=== PATIENT | female | born 1945 | race Asian ===

== ENCOUNTER 2016-03-07 18:26 | Emergency (ER) | payer MEDICARE, MEDICAID ==
[2016-03-07] MEDS ORDERED: DEXAMETHASONE 10 MG/ML VIAL PO STA (20:21)
[2016-03-07] MEDS ORDERED: KETOROLAC 30 MG/ML VIAL IM STA (20:21)
[2016-03-07] MEDS ORDERED: DEXAMETHASONE 10 MG/ML VIAL ONE (20:31)
[2016-03-07] MEDS ORDERED: KETOROLAC 30 MG/ML VIAL ONE (20:31)
== END 2016-03-07 21:07 | disposition home or self-care (01) ==
DX: J02.9 Acute pharyngitis, unspecified (principal); I10 Essential (primary) hypertension

== ENCOUNTER 2016-12-07 07:17 | Outpatient (CLI) | payer MEDICARE, MEDICAID ==
--- NOTE | 2016-12-07 12:13 | MRI Report ---
EXAM: MRI LUMBAR SPINE WITHOUT CONTRAST EXAM DATE: 12/07/2016 08:12 AM. CLINICAL HISTORY: Low back pain, radiating to the legs. COMPARISON: None. TECHNIQUE: Multiplanar, multisequence T1-weighted and fluid-sensitive sequences of the lumbar spine f rom T12 to S1 without contrast. Other: None. FINDINGS: Spinal Cord: The conus terminates at L1-L2. No signal abnormality in the visualized spinal cord. Alignment: Mild degenerative anterolisthesis of L3 on L4 and L4 on L5. Bone Marrow: Five pvs-glv-sldxmma lumbar vertebral bodies are assumed. Vertebral body heights are ludy ntained. No acute marrow edema. Disk Levels/Facets: T12-L1: Unremarkable. L1-L2: Unremarkable. L2-L3: Minimal diffuse annular disk bulge, no focal disk extrusion or significant stenosis. Minimal d egenerative facet hypertrophy. L3-L4: Mild degenerative disk disease. Moderate facet arthropathy with ligamentum flavum thickening a nd small facet joint effusions. Diffuse annular disk bulge. Minimal foraminal stenosis, no intraforam inal nerve root compression. Moderate stenosis of the central canal and left lateral recess. L4-L5: Moderate degenerative disk disease. Moderate to severe facet arthropathy with ligamentum flavu m thickening. Prominent diffuse annular disk bulge. No focal extrusion or significant central stenosi s but moderate to severe stenosis of the central canal and both lateral recesses. L5-S1: Patent central canal, but no thecal sac impingement. Minimal foraminal stenosis. Disk protrusi on to the left of midline is small. The epidural fat ventral to the left S1 nerve root sleeve; howeve r, is effaced. Findings are equivocal for left S1 nerve root displacement or compression. Musculature: No acute edema. Other: None. IMPRESSION: 1. Prominent multilevel lumbar degenerative changes, most prominent at L3-L4 and L4-L5. Moderate to s evere stenosis of the central canal and lateral recesses at L4-L5. Moderate central canal and left la teral recess stenosis at L3-L4. 2. No significant foraminal stenosis. 3. Mild subarticular zone stenosis on the left at L5-S1 from asymmetric disk protrusion to the left o f midline at this level. 4. Degenerative anterolisthesis of L3 on L4 and L4 on L5. Comment: The following findings are so common in adults without low back pain that while we report th eir presence, they must be interpreted with caution and in the context of the clinical situation. (Re amanda Camarillo et al, Spine 2001) Prevalence of findings in patients without low back pain: Disk degeneration (any evidence): 92% Disk desiccation/T2 signal loss: 83% Disk height loss: 56% Disk bulge: 64% Disk protrusion: 32% Annular tear/high intensity zone: 38% [facility] Referring Provider Line: [phone] SITE ID: [id number]
== END 2016-12-07 07:18 | disposition home or self-care (01) ==
LOC: DI 07:17
PROVIDERS: ATTEND Acupuncturist
DX: M51.36 Other intervertebral disc degeneration, lumbar region (principal); M51.26 Other intervertebral disc displacement, lumbar region; M43.16 Spondylolisthesis, lumbar region
CPT/HCPCS: 72148

== ENCOUNTER 2017-06-20 09:16 | Outpatient (CLI) | payer MEDICARE, MEDICAID ==
[2017-06-20 12:39] LABS: BASOPHILS # (AUTO) 0.1 10^3/uL (0.0-0.1); EOSINOPHILS # (AUTO) 0.2 10^3/uL (0.0-0.7); EOSINOPHILS % (AUTO) 2.7 %; HGB - HEMOGLOBIN 13.6 g/dL (12.0-16.0); LYMPHOCYTES # (AUTO) 1.4 10^3/uL (1.5-3.5); MEAN CORPUSCULAR HEMOGLOBIN 29.3 pg (27.0-31.0); MEAN CORPUSCULAR HGB CONC 33.5 g/dL (32.0-36.0); MEAN CORPUSCULAR VOLUME 87.5 fL (81.0-99.0); MEAN PLATELET VOLUME 9.4 fL (7.9-10.8); MONOCYTES # (AUTO) 0.5 10^3/uL (0.0-1.0); MONOCYTES % (AUTO) 8.6 %; NEUTROPHILS # (AUTO) 3.8 10^3/uL (1.5-6.6); NEUTROPHILS % (AUTO) 63.7 %; PLT - PLATELET COUNT 234 10^3/uL (130-450); RED BLOOD COUNT 4.65 10^6/uL (4.20-5.40); RED CELL DISTRIBUTION WIDTH 13.7 % (12.0-15.0)
[2017-06-20 12:49] LABS: HB2 TOTAL 14.5 g/dL; HEMOGLOBIN A1C 0.56 g/dL; HEMOGLOBIN A1C % 5.7 % (4.6-6.2)
[2017-06-20 12:57] LABS: ALBUMIN 4.4 g/dL (3.2-5.5); ALBUMIN/GLOBULIN RATIO 1.5 (1.0-2.2); ALKALINE PHOSPHATASE 65 IU/L (42-121); ALT ALANINE AMINOTRANSFERASE 15 IU/L (10-60); AST ASPARTATE AMINOTRANSFERASE 19 IU/L (10-42); BILIRUBIN,TOTAL 0.5 mg/dL (0.2-1.0); BUN - BLOOD UREA NITROGEN 10 mg/dL (6-20); CALCIUM 9.4 mg/dL (8.5-10.3); CARBON DIOXIDE - CO2 26 mmol/L (21-32); CHLORIDE 107 mmol/L (101-111); CHOL/HDL RATIO 5.5 (<4.4); CHOLESTEROL 252 mg/dL; CREATININE 0.8 mg/dL (0.4-1.0); GFR - MDRD 71 (>89); GLUCOSE 104 mg/dL (70-100); HDL CHOLESTEROL 46 mg/dL; LDL CHOLESTEROL,CALCULATED 170 mg/dL; LDL/HDL RATIO 3.7 (<4.4); SODIUM 139 mmol/L (135-145); TOTAL PROTEIN 7.4 g/dL (6.7-8.2); VLDL CHOLESTEROL 36 mg/dL
== END 2017-06-20 09:17 ==
LOC: LAB.N 09:16
PROVIDERS: ATTEND Nurse Practitioner Gerontology
DX: I10 Essential (primary) hypertension (principal); E78.5 Hyperlipidemia, unspecified; R73.9 Hyperglycemia, unspecified
CPT/HCPCS: 36415; 80053; 80061; 83036; 83721; 85025

== ENCOUNTER 2018-03-17 11:06 | Emergency (ER) | payer MEDICARE, MEDICAID ==
[2018-03-17 11:17] VITALS: BP 170/87
[2018-03-17] MEDS ORDERED: ACETAMINOPHEN 500 MG TABLET PO STA (12:28)
[2018-03-17] MEDS ORDERED: diazePAM 5 MG TABLET PO STA (12:28)
--- NOTE | 2018-03-17 13:17 | CT Report ---
Reason: back pain, with radicular symptoms Procedure Date: 03/17/2018 Accession Number: [id number] / [id number] Procedure: CT - Lumbar Spine W/O CPT Code: FULL RESULT: EXAM: CT LUMBAR SPINE WITHOUT CONTRAST EXAM DATE: 03/17/2018 12:48 PM. CLINICAL HISTORY: Back pain, with radicular symptoms. COMPARISONS: LUMBAR SPINE W/O 12/07/2016 8:00 AM. TECHNIQUE: Thin-section axial images were acquired of the lumbar spine from T12 to S1 without contrast. Post-processing: Coronal and sagittal reformats. Other: None. In accordance with CT protocol optimization, one or more of the following dose reduction techniques were utilized for this exam: automated exposure control, adjustment of mA and/or KV based on patient size, or use of iterative reconstructive technique. FINDINGS: Alignment: 0.3 cm L3 anterolisthesis, stable. 0.6 cm L4 anterolisthesis, stable. Minimal less than 10 degrees mid lumbar dextrocurvature, stable. Bones: Five mib-bdo-hhrtcuf lumbar vertebral bodies are present. No fractures or bone lesions. Disk Levels/Facets: T12-L1: Unremarkable. L1-L2: Unremarkable. L2-L3: Mild disk narrowing and bulge, stable. Facets unremarkable. Probable foraminal stenoses, stable. L3-L4: Disk narrowing with posterior uncovering of the disk from listhesis and moderate bilateral facet arthropathy, stable. Central canal and foraminal stenoses are stable from prior MR. L4-L5: Anterolisthesis and disk narrowing with posterior uncovering the disk, stable. Moderate to severe bilateral facet arthropathy is stable. Stable central canal and foraminal stenoses since prior MRI. L5-S1: Mild disk narrowing with bulge, stable. Mild bilateral facet arthropathy is unchanged. Musculature: Normal. No fatty atrophy. Other: The visualized retroperitoneum is unremarkable. IMPRESSION: 1. No change since prior MR. 2. Stable L3 and L4 anterolisthesis with disk narrowing and facet arthropathy. 3. Stable central canal stenosis L3-L4 and L4-L5. 4. No evidence of fracture. [facility]
[2018-03-17] MEDS ORDERED: predniSONE 20 MG TABLET PO STA (13:27)
--- NOTE | 2018-03-17 13:32 | ED Physician Documentation ---
PD HPI BACK PAIN - Stated complaint Stated Complaint: LEFT IS NUMB AND SWELLING - Chief complaint Chief Complaint: Back Pain - Additional information Additional information: 72-year-old female with a history of chronic back pain presents with increasing back pain over the past several weeks which now radiates into her buttocks. This is the same pain she is experienced in the past just has had a flareup over the past couple weeks. The patient denies any recent trauma, fever, saddle anesthesia, urinary retention, motor weakness, IV drug use and the patient is not on dialysis. The patient has had injections in the past with no significant improvement. The patient had an MRI in 2017. The patient has not talked with her primary about this current episode. Symptoms are described as moderate. No other associated symptoms Review of Systems Constitutional: denies: Fever Eyes: denies: Discharge Ears: denies: Ear pain Nose: denies: Congestion Throat: denies: Oral lesions / sores Cardiac: denies: Chest pain / pressure Respiratory: denies: Cough GI: denies: Abdominal Pain : denies: Dysuria, Incontinent, Hematuria Skin: denies: Rash Musculoskeletal: reports: Back pain. denies: Neck pain, Joint pain, Extremity swelling Neurologic: denies: Generalized weakness, Focal weakness, Numbness, Difficulty speaking, Syncope PD PAST MEDICAL HISTORY - Past Medical History Past Medical History: Yes Cardiovascular: Hypertension Respiratory: None Neuro: None Endocrine/Autoimmune: None GI: None CDL INSTRUCTOR: None : None HEENT: None Psych: None Musculoskeletal: Chronic back pain Derm: None - Past Surgical History Past Surgical History: Yes - Present Medications Home Medications: Ambulatory Orders Medication Instructions Recorded Confirmed Atenolol 25 mg PO 03/07/16 Benzonatate [Tessalon Perle] 100 mg PO TID #15 capsule 03/07/16 Simvastatin [Zocor] 5 mg PO 03/07/16 03/07/16 guaiFENesin/CODEINE [Robitussin AC] 5 ml PO Q6H PRN #120 ml 03/07/16 metFORMIN [Glucophage] 500 mg PO ONCE 03/07/16 03/07/16 predniSONE [Prednisone] 40 mg PO DAILY #10 tablet 03/17/18 - Allergies Allergies/Adverse Reactions: Allergies Allergy/AdvReac Type Severity Reaction Status Date / Time No Known Drug Allergies Allergy Verified 03/17/18 11:15 - Social History Does the pt smoke?: No Smoking Status: Never smoker Does the pt drink ETOH?: No Does the pt have substance abuse?: No - Immunizations Immunizations are current?: Yes - POLST Patient has POLST: No PD ED PE NORMAL - General General: Alert and oriented X 3, No acute distress - HEENT HEENT: Atraumatic, PERRL, EOMI, Ears normal - Back Back: No: No spinal TTP (lumbar paraspinal tenderness, no crepitus, no deformity ) - Derm Derm: Normal color - Extremities Extremities: No deformity, Normal ROM s pain - Neuro Neuro: Alert and oriented X 3, 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 No change since prior MR. 2. Stable L3 and L4 anterolisthesis with disk narrowing and facet arthropathy. 3. Stable central canal stenosis L3-L4 and L4-L5. 4. No evidence of fracture. ) PD MEDICAL DECISION MAKING - ED course ED course: The patient's evaluation shows no evidence of acute cauda equina or epidural abscess and currently there is no emergent indication for MRI. The patient appears appropriate for discharge and ongoing outpatient management. The patient is a diabetic but is having symptoms of sciatica. I offered her a course of a steroid to see if this would help with the inflammation but I did inform her that the steroid would most likely elevated blood sugar. The patient wanted to try the steroid and will closely monitor her blood sugar. The patient will follow up with primary care for referral to physical therapy. The patient will return for any worsening or any concerns Departure - Departure Disposition: 01 Home, Self Care Clinical Impression: Back pain of lumbosacral region with sciatica Condition: Good Instructions: ED Sciatica Follow-Up: Sheridan Rayo ARNP [Primary Care Provider] - Within 1 week (Please follow-up with your primary care this week. Please have them arrange for outpatient physical therapy to help with your acute back pain. Please ask about a referral back to the pain specialist.) Prescriptions: predniSONE [Prednisone] 40 mg PO DAILY #10 tablet Comments: Please return to the emergency department or any concerns
== END 2018-03-17 13:46 | disposition home or self-care (01) ==
LOC: ED 11:06
DX: M54.40 Lumbago with sciatica, unspecified side (principal); I10 Essential (primary) hypertension; E11.9 Type 2 diabetes mellitus without complications
CPT/HCPCS: 72131; 99282; 99283; A9270; J7512

== ENCOUNTER 2018-06-20 08:00 | Outpatient (CLI) | payer MEDICARE, MEDICAID ==
[2018-06-20 19:45] LABS: BASOPHILS # (AUTO) 0.1 10^3/uL (0.0-0.1); EOSINOPHILS # (AUTO) 0.2 10^3/uL (0.0-0.7); EOSINOPHILS % (AUTO) 4.1 %; HGB - HEMOGLOBIN 12.9 g/dL (12.0-16.0); LYMPHOCYTES # (AUTO) 1.4 10^3/uL (1.5-3.5); LYMPHOCYTES % (AUTO) 26.2 %; MEAN CORPUSCULAR HEMOGLOBIN 28.6 pg (27.0-31.0); MEAN CORPUSCULAR HGB CONC 32.1 g/dL (32.0-36.0); MEAN CORPUSCULAR VOLUME 89.1 fL (81.0-99.0); MEAN PLATELET VOLUME 9.3 fL (7.9-10.8); MONOCYTES # (AUTO) 0.4 10^3/uL (0.0-1.0); MONOCYTES % (AUTO) 7.1 %; NEUTROPHILS # (AUTO) 3.2 10^3/uL (1.5-6.6); NEUTROPHILS % (AUTO) 61.6 %; PLT - PLATELET COUNT 220 10^3/uL (130-450); RED BLOOD COUNT 4.52 10^6/uL (4.20-5.40); RED CELL DISTRIBUTION WIDTH 14.4 % (12.0-15.0); WHITE BLOOD COUNT 5.2 x10^3/uL (4.8-10.8)
[2018-06-20 20:26] LABS: ALBUMIN 4.2 g/dL (3.2-5.5); ALBUMIN/GLOBULIN RATIO 1.5 (1.0-2.2); ALKALINE PHOSPHATASE 70 IU/L (42-121); ALT ALANINE AMINOTRANSFERASE 15 IU/L (10-60); AST ASPARTATE AMINOTRANSFERASE 16 IU/L (10-42); BILIRUBIN,TOTAL 0.6 mg/dL (0.2-1.0); BUN - BLOOD UREA NITROGEN 19 mg/dL (6-20); CALCIUM 8.9 mg/dL (8.5-10.3); CARBON DIOXIDE - CO2 25 mmol/L (21-32); CHLORIDE 108 mmol/L (101-111); CHOL/HDL RATIO 3.1 (<4.4); CHOLESTEROL 142 mg/dL; CREATININE 0.7 mg/dL (0.4-1.0); GFR - MDRD 82 (>89); GLUCOSE 114 mg/dL (70-100); HDL CHOLESTEROL 46 mg/dL; LDL CHOLESTEROL,CALCULATED 84 mg/dL; LDL/HDL RATIO 1.8 (<4.4); SODIUM 140 mmol/L (135-145); VLDL CHOLESTEROL 12 mg/dL
== END 2018-06-20 23:59 | disposition home or self-care (01) ==
LOC: LAB.N 08:00
PROVIDERS: ATTEND Nurse Practitioner Gerontology
DX: E78.5 Hyperlipidemia, unspecified (principal); I10 Essential (primary) hypertension
CPT/HCPCS: 36415; 80053; 80061; 83721; 85025

== ENCOUNTER 2019-07-04 13:50 | Outpatient (CLI) | payer MEDICARE, MEDICAID ==
[2019-07-04 17:56] LABS: BASOPHILS # (AUTO) 0.1 10^3/uL (0.0-0.1); BASOPHILS % (AUTO) 1.3 %; EOSINOPHILS # (AUTO) 0.2 10^3/uL (0.0-0.7); HGB - HEMOGLOBIN 13.3 g/dL (12.0-16.0); LYMPHOCYTES # (AUTO) 1.8 10^3/uL (1.5-3.5); LYMPHOCYTES % (AUTO) 34.6 %; MEAN CORPUSCULAR HEMOGLOBIN 29.6 pg (27.0-31.0); MEAN CORPUSCULAR HGB CONC 33.2 g/dL (32.0-36.0); MEAN CORPUSCULAR VOLUME 89.3 fL (81.0-99.0); MEAN PLATELET VOLUME 11.6 fL (7.9-10.8); MONOCYTES # (AUTO) 0.5 10^3/uL (0.0-1.0); MONOCYTES % (AUTO) 9.8 %; NEUTROPHILS # (AUTO) 2.7 10^3/uL (1.5-6.6); NEUTROPHILS % (AUTO) 50.1 %; PLT - PLATELET COUNT 222 10^3/uL (130-450); RED BLOOD COUNT 4.49 10^6/uL (4.20-5.40); RED CELL DISTRIBUTION WIDTH 14.3 % (12.0-15.0); WHITE BLOOD COUNT 5.3 x10^3/uL (4.8-10.8)
[2019-07-04 18:14] LABS: HB2 TOTAL 13.6 g/dL; HEMOGLOBIN A1C 0.57 g/dL
[2019-07-04 18:26] LABS: ALBUMIN 4.3 g/dL (3.2-5.5); ALBUMIN/GLOBULIN RATIO 1.4 (1.0-2.2); ALKALINE PHOSPHATASE 64 IU/L (42-121); ALT ALANINE AMINOTRANSFERASE 12 IU/L (10-60); AST ASPARTATE AMINOTRANSFERASE 16 IU/L (10-42); BILIRUBIN,TOTAL 0.7 mg/dL (0.2-1.0); BUN - BLOOD UREA NITROGEN 13 mg/dL (6-20); CALCIUM 9.1 mg/dL (8.5-10.3); CARBON DIOXIDE - CO2 25 mmol/L (21-32); CHLORIDE 107 mmol/L (101-111); CHOL/HDL RATIO 3.3 (<4.4); CHOLESTEROL 174 mg/dL; CREATININE 0.7 mg/dL (0.4-1.0); GLUCOSE 100 mg/dL (70-100); HDL CHOLESTEROL 52 mg/dL; LDL CHOLESTEROL,CALCULATED 86 mg/dL; LDL/HDL RATIO 1.7 (<4.4); SODIUM 140 mmol/L (135-145); TOTAL PROTEIN 7.3 g/dL (6.7-8.2); VLDL CHOLESTEROL 36 mg/dL
== END 2019-07-04 23:59 | disposition home or self-care (01) ==
LOC: LAB.WCP 13:50
PROVIDERS: ATTEND Family Medicine
DX: E11.9 Type 2 diabetes mellitus without complications (principal); E78.5 Hyperlipidemia, unspecified; I10 Essential (primary) hypertension
CPT/HCPCS: 36415; 80053; 80061; 83036; 83721; 84443; 85025

== ENCOUNTER 2019-10-17 13:10 | Outpatient (CLI) | payer MEDICARE, MEDICAID | END 2019-10-17 13:11 | disposition home or self-care (01) | LOC: COV 13:10 | PROVIDERS: ATTEND Family Medicine | DX: R05 Cough (principal); J02.9 Acute pharyngitis, unspecified; R09.81 Nasal congestion; Z20.828 Contact with and (suspected) exposure to other viral communicable diseases ==

== ENCOUNTER 2020-02-19 14:25 | Outpatient (CLI) | payer MEDICARE, MEDICAID ==
--- NOTE | 2020-02-20 11:46 | Mammography Report ---
BILATERAL DIGITAL SCREENING MAMMOGRAM 3D/2D: 02/19/2020 CLINICAL: Routine screening. Comparison is made to exam dated: 10/25/2013 mammogram - [facility]. There are sca ttered fibroglandular elements in both breasts. There are benign vascular calcifications in both breasts. No significant masses, calcifications, or other findings are seen in either breast. There has been no significant interval change. IMPRESSION: BENIGN There is no mammographic evidence of malignancy. A 1 year screening mammogram is recommended. This exam was interpreted at Station ID: [id number]. NOTE: For mammograms, a report in lay terms will be sent to the patient. Approximately 15% of breast malignancies will not be visualized mammographically. In the management of a palpable breast mass, a negative mammogram must not discourage biopsy of a clinically suspicious lesion. Electronically Signed By: Ana donohue/kristalrad:02/19/2020 17:57:41 ACR BI-RADS Category 2: Benign Finding(s) 3342F PARENCHYMAL PATTERN: (A) - The breast(s) demonstrate(s) scattered fibroglandular densities. BI-RADS CATEGORY: (2) - 2 RECOMMENDATION: (ANNUAL) - Recommend routine annual screening mammography. [id number] 1 year screening LATERALITY: (B)
== END 2020-02-19 14:26 | disposition home or self-care (01) ==
LOC: DI.N 14:25
PROVIDERS: ATTEND Internal Medicine
DX: Z12.31 Encounter for screening mammogram for malignant neoplasm of breast (principal)
CPT/HCPCS: 77067

== ENCOUNTER 2020-05-15 08:00 | Outpatient (CLI) | payer MEDICARE, MEDICAID ==
[2020-05-15 12:24] LABS: ESTIMATED AVERAGE GLUCOSE 111 mg/dL (70-100); HEMOGLOBIN A1c% 5.5 % (4.27-6.07)
[2020-05-15 12:35] LABS: ALBUMIN 4.3 g/dL (3.2-5.5); ALBUMIN/GLOBULIN RATIO 1.5 (1.0-2.2); ALKALINE PHOSPHATASE 52 IU/L (42-121); ALT ALANINE AMINOTRANSFERASE 15 IU/L (10-60); AST ASPARTATE AMINOTRANSFERASE 19 IU/L (10-42); BILIRUBIN,TOTAL 0.8 mg/dL (0.2-1.0); BUN - BLOOD UREA NITROGEN 19 mg/dL (6-20); CALCIUM 9.3 mg/dL (8.5-10.3); CARBON DIOXIDE - CO2 26 mmol/L (21-32); CHLORIDE 106 mmol/L (101-111); CHOL/HDL RATIO 3.7 (<4.4); CHOLESTEROL 178 mg/dL; CREATININE 0.7 mg/dL (0.4-1.0); GFR - MDRD 82 (>89); GLUCOSE 114 mg/dL (70-100); HDL CHOLESTEROL 48 mg/dL; LDL CHOLESTEROL,CALCULATED 98 mg/dL; POTASSIUM 3.9 mmol/L (3.5-5.0); SODIUM 139 mmol/L (135-145); TOTAL PROTEIN 7.2 g/dL (6.7-8.2); TRIGLYCERIDES 161 mg/dL; VLDL CHOLESTEROL 32 mg/dL
[2020-05-15 12:44] LABS: CREATININE,URINE 109.9 mg/dL; MICROALBUM/CREATININE RATIO,UR 26.4 ug/mg (<30.0); MICROALBUMIN,URINE 2.9 mg/dL (0-300.0)
== END 2020-05-15 23:59 | disposition home or self-care (01) ==
LOC: LAB.WCP 08:00
PROVIDERS: ATTEND Internal Medicine
DX: E11.9 Type 2 diabetes mellitus without complications (principal)
CPT/HCPCS: 36415; 80053; 80061; 82043; 82570; 83036; 83721

== ENCOUNTER 2020-06-30 12:59 | Emergency (ER) | payer MEDICARE, MEDICAID ==
--- NOTE | 2020-06-30 13:27 | ED Physician Documentation ---
History of Present Illness - Stated complaint Stated Complaint: RT ARM PX - Chief complaint Chief Complaint: Ext Problem - History obtained from History obtained from: Patient - History of Present Illness Timing: Last night Pain level max: 7 Pain level now: 6 - Additonal information Additional information: 74 year old female with R wrist pain x 24 hours. States no known injury. She is right-handed. She states she has been a long time on the computer and cooking yesterday. Denies any injury. States that she developed a sharp pain in the wrist last night. Worse with movement and better with rest. No fevers. No chills. No falls. She is a diabetic. Denies working outside or any injuries from gardening. Review of Systems Constitutional: denies: Fever, Chills Respiratory: denies: Cough GI: denies: Vomiting, Diarrhea Skin: denies: Rash Musculoskeletal: denies: Neck pain, Back pain Neurologic: denies: Headache PD PAST MEDICAL HISTORY - Past Medical History Cardiovascular: Hypertension Respiratory: None Neuro: None Endocrine/Autoimmune: None GI: None REMOTE INPATIENT CODER: None : None HEENT: None Psych: None Musculoskeletal: Chronic back pain Derm: None - Past Surgical History Past Surgical History: Yes - Present Medications Home Medications: Ambulatory Orders Medication Instructions Recorded Confirmed metFORMIN [Glucophage] 500 mg PO DAILY 03/07/16 06/30/20 Atorvastatin [Lipitor] 20 mg ORAL DAILY 06/30/20 06/30/20 Carvedilol [Coreg] 25 mg PO DAILY 06/30/20 06/30/20 Lisinopril [Zestril] 40 mg PO DAILY 06/30/20 06/30/20 Meloxicam [Mobic] 7.5 mg PO BID PRN #20 tablet 06/30/20 - Allergies Allergies/Adverse Reactions: Allergies Allergy/AdvReac Type Severity Reaction Status Date / Time No Known Drug Allergies Allergy Verified 06/30/20 13:07 - Social History Does the pt smoke?: No Smoking Status: Never smoker Does the pt drink ETOH?: No Does the pt have substance abuse?: No - Immunizations Immunizations are current?: Yes - POLST Patient has POLST: No PD ED PE NORMAL - Vitals Vital signs reviewed: Yes - General General: Alert and oriented X 3, No acute distress - HEENT HEENT: Moist mucous membranes - Derm Derm: Warm and dry - Extremities Extremities: Other (R wrist - FROM present, but with pain. mild swelling volar aspect of distal ulna. no skin changes. no warmth. TTP over the distal ulna. o/w normal exam of hand, wrist, forearm, elbow. NVI) - Neuro Neuro: Alert and oriented X 3 Results - Vitals Vitals: Vital Signs - 24 hr 06/30/20 06/30/20 13:02 14:12 Temperature 36.9 C 36.8 C Heart Rate 90 74 Respiratory 17 16 Rate Blood Pressure 130/76 150/93 H O2 Saturation 98 96 Oxygen O2 Source Room air - Rads (name of study) R wrist xray Radiology: Prelim report reviewed, EMP read contemporaneously, See rad report PD MEDICAL DECISION MAKING - ED course Complexity details: reviewed results, re-evaluated patient, considered differential, d/w patient ED course: 74-year-old female with right wrist pain, unclear etiology, possible overuse injury. No signs of infection. Does not appear consistent with gout. Possible arthritis flare. Placed in a Velcro splint for comfort. We will place on anti-inflammatories as well. No findings on x-ray. Patient counseled regarding signs and symptoms for which I believe and urgent re-evaluation would be necessary. Patient with good understanding of and agreement to plan and is comfortable going home at this time This document was made in part using voice recognition software. While efforts are made to proofread this document, sound alike and grammatical errors may occur. No fracture. No osseous lesion. If there are persistent symptoms or continued clinical concern for pathology, then repeat plain film radiographs (7-10 days) or advanced imaging (CT, MR, bone scan) should be considered for further evaluation. Departure - Departure Disposition: 01 Home, Self Care Clinical Impression: Wrist pain, right Condition: Good Instructions: ED Sprain Wrist Follow-Up: Reilly Perez MD [Primary Care Provider] - Within 1 week Prescriptions: Meloxicam [Mobic] 7.5 mg PO BID PRN #20 tablet PRN Reason: Pain Comments: Wear the splint as needed for comfort. This will help to decrease the swelling in your wrist. Use the meloxicam as needed for pain. You can ice the area as well. Decreased use of the right wrist for the next week. Follow-up with your doctor next week for recheck. Return sooner if you worsen. Discharge Date/Time: 06/30/20 14:17
--- NOTE | 2020-06-30 13:46 | XRAY Report ---
PROCEDURE: Wrist 4 View RT INDICATIONS: wrist pain and swelling, no injury TECHNIQUE: 4 views of the wrist were acquired. COMPARISON: None FINDINGS: Bones: No fractures or dislocations. No suspicious bony lesions. Scaphoid view: Scaphoid is intact. Soft tissues: No suspicious soft tissue calcifications. IMPRESSION: No fracture. No osseous lesion. If there are persistent symptoms or continued clinical concern for pa thology, then repeat plain film radiographs (7-10 days) or advanced imaging (CT, MR, bone scan) shoul d be considered for further evaluation. Reviewed by: Chhaya Roque MD, PhD on 06/30/2020 1:45 PM PDT Approved by: Chhaya Roque MD, PhD on 06/30/2020 1:45 PM PDT Station ID: [id number]
[2020-06-30] MEDS ORDERED: MELOXICAM 7.5 MG TABLET PO STA (14:02)
[2020-06-30 14:13] VITALS: BP 150/93
== END 2020-06-30 14:17 | disposition home or self-care (01) ==
LOC: ED 12:59
DX: M25.531 Pain in right wrist (principal); E11.9 Type 2 diabetes mellitus without complications; Z79.84 Long term (current) use of oral hypoglycemic drugs; I10 Essential (primary) hypertension
CPT/HCPCS: 73110; 99283; 99284; A9270

== ENCOUNTER 2021-05-26 11:58 | Outpatient (CLI) | payer MEDICARE, MEDICAID ==
[2021-05-26 17:56] LABS: BASOPHILS # (AUTO) 0.1 10^3/uL (0.0-0.1); BASOPHILS % (AUTO) 1.5 %; EOSINOPHILS # (AUTO) 0.1 10^3/uL (0.0-0.7); HCT - HEMATOCRIT 38.8 % (37.0-47.0); HGB - HEMOGLOBIN 12.8 g/dL (12.0-16.0); LYMPHOCYTES # (AUTO) 1.5 10^3/uL (1.5-3.5); LYMPHOCYTES % (AUTO) 28.7 %; MEAN CORPUSCULAR HEMOGLOBIN 29.2 pg (27.0-31.0); MEAN CORPUSCULAR VOLUME 88.4 fL (81.0-99.0); MEAN PLATELET VOLUME 11.2 fL (7.9-10.8); MONOCYTES # (AUTO) 0.6 10^3/uL (0.0-1.0); NEUTROPHILS # (AUTO) 3.1 10^3/uL (1.5-6.6); NEUTROPHILS % (AUTO) 56.8 %; PLT - PLATELET COUNT 233 10^3/uL (130-450); RED BLOOD COUNT 4.39 10^6/uL (4.20-5.40); RED CELL DISTRIBUTION WIDTH 13.2 % (12.0-15.0); WHITE BLOOD COUNT 5.4 x10^3/uL (4.8-10.8)
[2021-05-26 18:22] LABS: ALBUMIN 4.5 g/dL (3.2-5.5); ALBUMIN/GLOBULIN RATIO 1.5 (1.0-2.2); ALKALINE PHOSPHATASE 51 IU/L (42-121); ALT ALANINE AMINOTRANSFERASE 11 IU/L (10-60); AST ASPARTATE AMINOTRANSFERASE 15 IU/L (10-42); BILIRUBIN,TOTAL 0.8 mg/dL (0.2-1.0); BUN - BLOOD UREA NITROGEN 36 mg/dL (6-20); CALCIUM 9.6 mg/dL (8.5-10.3); CARBON DIOXIDE - CO2 26 mmol/L (21-32); CHLORIDE 105 mmol/L (101-111); CHOL/HDL RATIO 3.5 (<4.4); CHOLESTEROL 178 mg/dL; CREATININE 1.5 mg/dL (0.4-1.0); GFR - MDRD 34 (>89); GLUCOSE 109 mg/dL (70-100); HDL CHOLESTEROL 51 mg/dL; LDL CHOLESTEROL,CALCULATED 103 mg/dL; POTASSIUM 3.6 mmol/L (3.5-5.0); SODIUM 140 mmol/L (135-145); TOTAL PROTEIN 7.6 g/dL (6.7-8.2); TRIGLYCERIDES 121 mg/dL; VLDL CHOLESTEROL 24 mg/dL
[2021-05-26 18:41] LABS: MICROALBUM/CREATININE RATIO,UR 10.7 ug/mg (<30.0); MICROALBUMIN,URINE 3.3 mg/dL (0-300.0)
[2021-05-26 20:41] LABS: ESTIMATED AVERAGE GLUCOSE 137 mg/dL (70-100); HEMOGLOBIN A1c% 6.4 % (4.27-6.07)
== END 2021-05-26 11:59 | disposition home or self-care (01) ==
LOC: LAB.N 11:58
PROVIDERS: ATTEND Internal Medicine
DX: I10 Essential (primary) hypertension (principal); E78.5 Hyperlipidemia, unspecified; R73.03 Prediabetes
CPT/HCPCS: 36415; 80053; 80061; 82043; 82570; 83036; 83721; 85025

== ENCOUNTER 2022-11-28 09:41 | Outpatient (CLI) | payer MEDICARE, MEDICAID ==
--- NOTE | 2022-11-28 12:21 | DEXA Report ---
PROCEDURE: Dexa Spine and/or Hip INDICATIONS: POST MENOPAUSAL TECHNIQUE: Dual energy x-ray absorptiometry (DXA) was performed on a [employer] System. Regions measur ed are the AP Spine, femoral neck, and if needed forearm. COMPARISON: None FINDINGS: Lumbar Spine: L3 and L4 excluded due to surgical hardware. Bone Mineral Density 0.969 g/cm/cm,T score -1.6. Baseline. Left Femoral Neck: Bone Mineral Density 0.765 g/cm/cm, T score -2.0. Baseline. Left Hip: Bone Mineral Density 0.855 g/cm/cm,T score -1.2. Baseline. Left Forearm: Bone Mineral Density 0.583 g/cm/cm, T score -1.3. Baseline. (T score greater or equal to -1.0: NORMAL) (T score from -1.1 to -2.4: OSTEOPENIA) (T score less than or equal to -2.5 to: OSTEOPOROSIS) Impression: By WHO criteria, this patient has low bone density (osteopenia). Patients with diagnosis of osteoporosis or osteopenia should have regular bone mineral density assess ment. For those eligible for Medicare, routine testing is allowed once every 2 years. Testing frequ ency can be increased for patients who have rapidly progressing disease or for those who are receivin g medical therapy to restore bone mass. Reviewed by: Kar Tavarez on 11/28/2022 12:19 PM PDT Approved by: Kar Tavarez on 11/28/2022 12:19 PM PDT Station ID: [id number]
== END 2022-11-28 09:42 | disposition home or self-care (01) ==
LOC: DI 09:41
PROVIDERS: ATTEND Internal Medicine
DX: Z78.0 Asymptomatic menopausal state (principal); M85.80 Other specified disorders of bone density and structure, unspecified site

== ENCOUNTER 2022-11-28 10:30 | Outpatient (CLI) | payer MEDICARE, MEDICAID ==
--- NOTE | 2022-11-29 13:07 | Mammography Report ---
BILATERAL DIGITAL SCREENING MAMMOGRAM 3D/2D: 11/28/2022 CLINICAL: Routine screening. Comparison is made to exams dated: 02/19/2020 mammogram and 10/25/2013 mammogram - [facility]. There are scattered areas of fibroglandular density in both breasts (category b / 25%-50% glandular t issue). There are benign vascular calcifications in both breasts. No significant masses, calcifications, or other findings are seen in either breast. There has been no significant interval change. IMPRESSION: BENIGN There is no mammographic evidence of malignancy. A 1 year screening mammogram is recommended. Based on the Tyrer Cuzick model (a risk assessment model) the patients lifetime risk is 2.6% and her 10 year risk is 0.0%. According to the ACR, ACS, and NCCN guidelines, an annual breast MRI exam alexa g with mammogram is recommended if the patients lifetime risk is 20% or greater. This exam was interpreted at Station ID: [id number]. NOTE: For mammograms, a report in lay terms will be sent to the patient. Approximately 15% of breast malignancies will not be visualized mammographically. In the management of a palpable breast mass, a negative mammogram must not discourage biopsy of a clinically suspicious lesion. Electronically Signed By: Chano grace/ana:11/28/2022 15:32:28 letter sent: No_Letter ACR BI-RADS Category 2: Benign Finding(s) 3342F PARENCHYMAL PATTERN: (A) - The breast(s) demonstrate(s) scattered fibroglandular densities. BI-RADS CATEGORY: (2) - 2 Mammogram [id number] 1 year screening LATERALITY: (B)
== END 2022-11-28 13:00 | disposition home or self-care (01) ==
LOC: DI 10:30
PROVIDERS: ATTEND Internal Medicine
DX: Z12.31 Encounter for screening mammogram for malignant neoplasm of breast (principal)

== ENCOUNTER 2023-02-21 10:11 | Outpatient (CLI) | payer MEDICARE, MEDICAID ==
[2023-02-21 12:38] LABS: CALCIUM 9.7 mg/dL (8.5-10.3); CREATININE 0.9 mg/dL (0.6-1.3); POTASSIUM 4.4 mmol/L (3.5-4.5)
[2023-02-21 14:25] LABS: ESTIMATED AVERAGE GLUCOSE 126 mg/dL (70-100)
== END 2023-02-21 10:12 | disposition home or self-care (01) ==
LOC: LAB.N 10:11
PROVIDERS: ATTEND Internal Medicine
DX: I10 Essential (primary) hypertension (principal); R73.03 Prediabetes
CPT/HCPCS: 36415; 80048; 83036

== ENCOUNTER 2023-10-19 08:54 | Outpatient (CLI) | payer MEDICARE, MEDICAID ==
--- NOTE | 2023-10-19 09:35 | Sleep Patient Instructions ---
Sleep Center Visit Summary - Patient Visit Information Reason for Visit: Initial consult for evaluation of sleep disordered breathing and other sleep issues. - Patient Instructions Instructions Attached: Sleep Study Additional Instructions: You will be completing a sleep study, either an in-lab polysomnography (PSG) or home sleep study (HST). You will follow-up in the sleep care office after the sleep study is completed to hear the results and talk about therapy, if needed. You will be called by our office staff to schedule this appointment, but you may contact us with any questions. - Clinic Information Contact: [facility] [address] [place] [address] [email or web address] T: [phone]
--- NOTE | 2023-10-19 09:40 | SLEEP CARE CONSULTATION ---
Information from patient questionnaire entered by Kylie Capellan. I have reviewed and concur with the information entered by Kylie Capellan. This document represents the service I personally performed and the decisions made by me, Indira Salas ARNP. History of Present Illness Service Date and Time: 10/19/2023 0854 Reason for Visit: New patient Accompanied by: Daughter Chief Complaint: reports: Snoring Date of Onset: unknown Usual bedtime: 3555-8045 Time it takes to fall asleep: 5-10MINS Snores at night: Yes Observed to quit breathing while asleep: Yes Sleeps alone due to snoring: Yes Number of times waking at night: 1-2 Reasons for waking at night: reports: Bathroom. denies: Choking, Gasping for air Toss, Turn, or Twitch while sleeping: Yes Recalls having dreams: Yes Usually gets out of bed at: 5327-0044 Feels refreshed in the morning: Yes Morning headache: No Sleepy or fatigued during the day: No Ever fallen asleep while driving: No (she does not drive) Takes day naps: No (occasional unintentional naps) Prior sleep studies: No Additional HPI information: I had the pleasure of seeing DIMITRY JENKINS today regarding the possibility of her having a sleep disorder. Her current complaint is snoring. She is accompanied by her daughter, Maria L. She says her daughter tells her that she snores loudly and she will have a pause in breathing sometimes. Her and her slept in separate rooms when he was still there (has ). She says she normally feels refreshed in the morning and will occasionally take a nap during the day. She says they are usually unintentional naps. She does get up to the bathroom a couple times a night but denies waking up feeling like she is choking or gasping for air. She did not know she snored until her daughter told her that she could hear loud snoring when she slept. - Parasomnia Symptoms Ever been unable to move upon waking from sleep: No Walks in sleep: No Talks in sleep: No Ever acted out dreams in sleep: No Ever felt weak in the knees when startled or emotional: No Bothered by creepy, crawly, restless sensations in legs: No Problems with memory or concentration: Yes (memory, forgets things) Subjective Initial Ruth Sleepiness Scale score: 5 (10/18/23) Past Medical History Past Medical History: reports: Hypertension, Diabetes, Arthritis, Other (BACK PAIN ) Social History The patient's occupation is a RE. Patient is and lives in . Have you smoked in the past 12 months: No Alcohol use: No Caffeine use: Yes Caffeine amount and frequency: 1 cup coffee in morning Family History Family history of sleep disordered breathing: No Allergies and Home Medications Known drug allergies: No Drug allergies reviewed: Yes Home medication list reviewed: Yes (as listed) Allergy and home medication list: Allergies No Known Drug Allergies Allergy Home Medications Medication Instructions Recorded Confirmed Last Taken Type metFORMIN [Glucophage] 500 mg PO DAILY 03/07/16 10/19/23 Unknown History Atorvastatin [Lipitor] 20 mg ORAL DAILY 06/30/20 10/19/23 Unknown History Lisinopril [Zestril] 40 mg PO DAILY 06/30/20 10/19/23 Unknown History carvediloL [Coreg] 25 mg PO DAILY 06/30/20 10/19/23 Unknown History hydroCHLOROthiazide See Rx Instructions .ROUTE .COMPLEX 10/19/23 10/19/23 Unknown History [Hydrochlorothiazide] Review of Systems Weight gain over past 5 years: 10 Cardiovascular: reports: high blood pressure Gastrointestinal: denies: heartburn Urinary: reports: frequency Neurological: reports: gait or balance problems Psychiatric: denies: anxiety, depression Ear/Nose/Throat: reports: dry mouth/throat. denies: tonsillectomy Endocrine: denies: thyroid disease Musculoskeletal: reports: joint pain, back pain, mobility problems Physical Exam Vital signs obtained and entered by: KYLIE Andres MA Blood Pressure: 133/75 (RIGHT ARM) Cuff size: regular Heart Rate: 66 O2 Saturation: 95 Height: 5 ft Weight: 152 lb 3.2 oz Body Mass Index: 29.7 BMI Classification: Overweight Neck circumference: 14 Nostrils: patent to airflow Mouth and throat: narrow oropharynx Soft palate: long Hard palate: normal Uvula: normal Uvula visualization: 0% Mallampati Class IV Tongue: normal in size Tonsils: small Neck: normal w/o lymphadenopathy or thyromegaly Heart: regular rate and rhythm Lungs: clear bilaterally Impression and Plan 1. Suspected Obstructive Sleep Apnea-Hypopnea Syndrome, as suggested by a history of loud and irregular snoring and observed cessation of breath while asleep. She has a history of diabetes and hypertension. Narrow oropharynx and obesity are common predisposing factors for obstructive sleep apnea-hypopnea syndrome. I recommend proceeding to polysomnography to confirm the diagnosis and to assess severity. If the patient has significant sleep disordered breathing, a manual CPAP titration study will also be performed to find the optimal treatment pressure. I informed the patient of what the sleep studies involve and after some discussion, obtained agreement to proceed. The pathophysiology of obstructive sleep apnea-hypopnea syndrome was discussed with the patient and health risks of cardiovascular and cerebrovascular disease if not treated. Risks of drowsy driving discussed in detail and patient advised to avoid long distance driving and to lung puller at the first sign of drowsiness. Patient agreed to plan. * Schedule polysomnography +- manual CPAP titration study and return in 1-2 weeks after the study to discuss result and initiate therapy. * Avoid long distance driving or driving when feeling sleepy. * Avoid alcohol, sedative and muscle relaxant around bedtime. * Attempt to lose weight. * Review instructions provided by trained office staff on how to prepare for the sleep study. * Return for follow-up after sleep study completed. Counseling Topics: Weight loss health impact Plan: PSG and follow up Visit Type: In Office Time Spent with Patient (minutes): 30 Provider Statement: I spent 100% of the Face to Face Visit with the patient with greater than 50% spent counseling the patient and coordination of care.
[2023-10-19 09:41] VITALS: BP 133/75; O2SAT 95
== END 2023-10-19 08:55 | disposition home or self-care (01) ==
LOC: SC 08:54
PROVIDERS: ATTEND Nurse Practitioner Family
DX: R06.83 Snoring (principal); R06.81 Apnea, not elsewhere classified; E11.9 Type 2 diabetes mellitus without complications; I10 Essential (primary) hypertension; Z79.84 Long term (current) use of oral hypoglycemic drugs; E66.3 Overweight; Z68.29 Body mass index [BMI] 29.0-29.9, adult
CPT/HCPCS: 99203; G0463; 99212